=== PATIENT | female | born 1950 | race Caucasian/White ===

== ENCOUNTER 2024-10-21 10:14 | Outpatient (RCR) | payer MEDICARE, OTHER, SELFPAY ==
[2024-10-21 11:12] VITALS: BP 176/70
[2024-10-21 11:33] VITALS: BP 173/65
[2024-10-21] MEDS: TYLENOL 650 MG PO (11:40)
[2024-10-21 13:18] VITALS: BP 182/73
[2024-10-21 13:19] VITALS: BP 182/73
[2024-10-21 13:36] VITALS: BP 153/60
[2024-10-21 15:31] VITALS: BP 162/65
== END 2024-10-25 23:59 | disposition home or self-care (01) ==
LOC: OID 10:14
PROVIDERS: ATTENDING PHYSICIAN Internal Medicine
DX: D64.9 Anemia, unspecified (principal)
CPT/HCPCS: 36415; 36430; 86850; 86900; 86901; 86920; P9016

== ENCOUNTER 2024-12-12 08:19 | Outpatient (RCR) | payer MEDICARE, OTHER, SELFPAY ==
[2024-12-12 09:15] VITALS: BP 152/57
[2024-12-12 09:36] VITALS: BP 157/57
[2024-12-12 11:40] VITALS: BP 134/54
== END 2024-12-23 23:59 | disposition home or self-care (01) ==
LOC: OID 08:19
PROVIDERS: ATTENDING PHYSICIAN Internal Medicine
DX: D64.9 Anemia, unspecified (principal)
CPT/HCPCS: 36415; 36430; 86850; 86900; 86901; 86920; P9016